=== PATIENT | female | born 2000 | race Caucasian/White ===

== ENCOUNTER 2021-11-23 18:33 | Emergency (ER) | payer OTHER, SELFPAY ==
[2021-11-23 19:22] VITALS: BP 111/64; PULSE 94; RESP 16; TEMP 36.4; O2SAT 97; BMI 19.8
[2021-11-23 20:01] LABS: COVID-19 Test Negative (Negative)
== END 2021-11-23 23:39 | disposition left against medical advice (07) ==
LOC: HO.ED 23:37
PROVIDERS: Emergency Provider Emergency Medicine
DX: J45.909 Unspecified asthma, uncomplicated (principal); Z20.822 Contact with and (suspected) exposure to COVID-19
CPT/HCPCS: 87635; 99282; 99283